=== PATIENT | male | born 1985 | race Caucasian/White ===

== ENCOUNTER 2016-11-11 08:39 | Inpatient (IN) | payer SELFPAY ==
[2016-11-11] MEDS ORDERED: Aspirin Low Dose CHEW TAB* 81 MG PO ONE (08:59)
[2016-11-11] MEDS ORDERED: NS 0.9% 1000 ML* 1,000 ML IV ONE (08:59)
[2016-11-11] MEDS ORDERED: Aspirin Low Dose CHEW TAB* 81 MG ONE (09:04)
[2016-11-11 09:08] LABS: Hematocrit 43 % (42-52); Hemoglobin 14.9 g/dl (14.0-18.0); Mean Corpuscular HGB Conc 35 g/dl (31-36); Mean Corpuscular Hemoglobin 31 pg (27-31); Mean Corpuscular Volume 89 fL (80-94); Mean Platelet Volume 8 um3 (7.4-10.4); Red Blood Count 4.83 10^6/ul (4.0-5.4); Red Cell Distribution Width 12 % (10.5-15); White Blood Count 9.7 10^3/ul (3.5-10.8)
[2016-11-11 09:41] LABS: Albumin 4.7 g/dL (3.2-5.2); BUN/Creatinine Ratio 13.2 (8-20); Calcium 9.4 mg/dL (8.6-10.3); EGFR African American 123.4 (>60); Globulin 2.7 g/dL (2-4); Potassium 3.6 mmol/L (3.5-5.0); Total Bilirubin 0.7 mg/dL (0.2-1.0); Total Protein 7.4 g/dL (6.4-8.9)
--- NOTE | 2016-11-11 09:41 | RAD ---
HISTORY: Chest pain, shortness of breath, pneumonia, CHF COMPARISONS: December 06, 2015 VIEWS: 4: Frontal dual-energy and lateral views of the chest. FINDINGS: CARDIOMEDIASTINAL SILHOUETTE: The cardiomediastinal silhouette is normal. EPIFANIO: The epifanio are normal. PLEURA: The costophrenic angles are sharp. No pleural abnormalities are noted. LUNG PARENCHYMA: The lungs are clear. ABDOMEN: The upper abdomen is clear. There is no subphrenic gas. BONES AND SOFT TISSUES: The patient is status post median sternotomy OTHER: A right-sided AICD pacemaker is noted. A prosthetic heart valve is noted. IMPRESSION: NO ACTIVE CARDIOPULMONARY DISEASE.
[2016-11-11 09:46] LABS: Troponin I 0.75 ng/mL (<0.04)
[2016-11-11] MEDS ORDERED: Heparin DRIP 25,000 UNITS(*) 25,000 UNITS/500 ML BAG IVPB SCH (10:15)
[2016-11-11] MEDS ORDERED: Heparin DRIP 25,000 UNITS(*) 25,000 UNITS/500 ML BAG ONE (10:18)
[2016-11-11] MEDS ORDERED: Heparin VIAL(*) 5000 UNITS/ML VIAL (FIVE THOUSAND) ONE (10:18)
[2016-11-11] MEDS ORDERED: Heparin VIAL(*) 5000 UNITS/ML VIAL (FIVE THOUSAND) IV SCH ×2 (11:00→12:00)
[2016-11-11] MEDS ORDERED: Nicotine GUM* 2 MG PO PRN (11:37)
[2016-11-11] MEDS ORDERED: Acetaminophen TAB* 325 MG PO PRN (11:43)
[2016-11-11] MEDS ORDERED: Ondansetron INJ* 2 MG/ML VIAL IV PRN (11:43)
[2016-11-11 11:52] LABS: Troponin I 0.77 ng/mL (<0.04)
[2016-11-11] MEDS ORDERED: Nicotine Inhaler* 10 MG AMP INH PRN (11:57)
[2016-11-11 12:33] LABS: TSH (Thyroid Stimulating Horm) 2.3 mcIU/mL (0.34-5.60)
[2016-11-11] MEDS ORDERED: Mouth Piece, Nicotine* 1 EACH CARTRIDGE INH ONE (13:00)
[2016-11-11] MEDS: Heparin DRIP 25,000 UNITS(*) 25,000 UNITS/500 ML BAG IVPB SCH (13:48)
--- NOTE | 2016-11-11 14:13 | HP ---
HISTORY AND PHYSICAL: DATE OF ADMISSION: 11/11/16 PROVIDER: Chanda Carter NP ATTENDING PHYSICIAN: Becky Curran MD * (as dictated by Chanda Carter NP). CONSULTING PHYSICIAN: Mehran Huerta MD, Cardiology. CHIEF COMPLAINT: Chest pain. HISTORY OF PRESENT ILLNESS: Mr. Padilla is a 31-year-old male patient with a history significant for obstructive hypertrophic cardiomyopathy, VSD, PDA and PFO as well as prosthetic aortic valve replacement in 2005 who presents today with concern for chest pain. Patient states that the pain started last night but really started bothering him around 6 o'clock this morning. He describes it as an intermittent sharp pain on the left side, sometimes shooting through the chest. He denies any radiation to jaw, neck, back, shoulders or arms. He denies any accompanying diaphoresis, shortness of breath. He does report feeling a little dizzy this morning. Here in the ER, he reports that the pain has resolved and denies any current dizziness. Patient was recently discharged from the cardiology practice of [facility]. Patient states that it was because he had missed an appointment. Since then, the patient has not been able to get prescription refills for his warfarin. He said that he was discharged from practice about 3 months ago and has no primary care doctor although he has been searching. He has been off of his warfarin for approximately 1 month. The patient denies any other chronic medical conditions including hypertension, hyperlipidemia, and diabetes. He denies any recent illness, fever, chills, cold or flu symptoms, changes in appetite. He denies orthopnea and reduced activity tolerance. He denies any palpitations, lower extremity edema, cough, abdominal pain, nausea, vomiting, diarrhea, dysuria. Denies any tingling or numbness. No joint pains, muscle pains or rashes. Here in the ER, the patient had an EKG. EKG showed concern for intraventricular conduction delay with T-wave inversions in leads 1 and aVL. His initial troponin was 0.75. PAST MEDICAL HISTORY: 1. Obstructive hypertrophic cardiomyopathy. 2. History of V-tach. 3. PDA. 4. PFO. 5. VSD. 6. DE in 2005. PAST SURGICAL HISTORY: Includes: 1. ICD placement. 2. Aortic valve replacement in 2005. HOME MEDICATIONS: Patient was previously on warfarin but currently denies taking any medications. ALLERGIES: No known drug allergies. FAMILY HISTORY: He reports cardiac disease in his grandmother and grandfather. SOCIAL HISTORY: The patient is a current smoker and smokes about a pack per day. He states this morning he threw out his cigarettes and is motivated to quit smoking. He reports occasional alcohol use stating that he had probably more alcohol this week than he usually has and prior to that has not had any in approximately 7 months. This week he endorses drinking a couple of beers on Monday, which was the 08 of November holiday and on the weekend. He works at the [employer]. He does not endorse any recreational drug use stating that he last used 11 years ago. Larry Lakhani is the surrogate decision maker, she can be reached at [phone]. REVIEW OF SYSTEMS: As per HPI. PHYSICAL EXAMINATION GENERAL: Mr. Padilla is a young male patient who is lying in ED stretcher, in no acute distress. VITAL SIGNS: Temperature 98.0, respiratory rate 18, blood pressure 119/70, heart rate 65, and O2 saturations is 97% on room air. HEENT: Head is atraumatic, normocephalic. Face is symmetrical. Pupils are equal, round, and reactive to light. Sclerae anicteric. Extraocular movements are intact. Oral mucosa appears moist. There is no oropharyngeal erythema or exudate. NECK: Supple. No lymphadenopathy appreciated. No carotid bruits noted. No thyromegaly noted. No JVD. CARDIAC: S1, S2. Heart sounds regular rate and rhythm. There is a systolic murmur heard best at the right sternal border, grade 2 to 3/6. Patient has no peripheral edema. Distal pulses are 2+, symmetrical and equal. RESPIRATORY: Lungs are clear to auscultation. ABDOMEN: Soft, nontender, nondistended. Bowel sounds present in all 4 quadrants. MUSCULOSKELETAL: No clubbing or cyanosis noted. Patient has full range of motion. SKIN: Appears grossly intact. NEURO: Cranial nerves II through XII are grossly intact. Patient's lower extremity: Sensation is intact to light touch to the lower extremity. PSYCH: He is alert and oriented x3. Affect is appropriate. LABORATORY DATA AND DIAGNOSTIC STUDIES: CBC: WBC 9.7, hemoglobin 14.9, hematocrit 43, platelet count 179. INR 0.96. D-dimer less than 200. CMP: Sodium 137, potassium 3.6, chloride 104, carbon dioxide 26, BUN 12, creatinine 0.91, glucose 101, lactic acid 0.7, calcium 9.4. Total bilirubin 0.7, AST 32, ALT 24, alk phos 50. Troponin 0.75, BNP 212. Albumin 4.7. EKG as per above. Chest x-ray: No active cardiopulmonary disease. Old medical records were reviewed. ASSESSMENT AND PLAN: Mr. Padilla is a 31-year-old male with a past medical history of cardiomyopathy and aortic valve replacement who has been noncompliant with his warfarin, recently manifested with chest pain. He will be admitted to the telemetry unit. 1. Chest pain. Admit to telemetry. Patient is currently n.p.o. in the event that he may need further intervention with cardiac catheterization later on today. We will obtain echocardiogram, Cardiology was consulted in the ER and will see the patient. He has been started on a heparin drip, which we will continue. Continue to monitor his troponins. Patient has also received aspirin here in the ER. Patient has an ICD, which we will interrogate. He denies any ICD firing recently. [facility] has been contacted here in the ER. Further recommendations as per Cardiology. 2. Aortic valve replacement. Patient has been off of warfarin for at least 1 month. He will need to resume this or some form of anticoagulation once cleared by Cardiology and we will stop his heparin drip. 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 3. Tobacco abuse. Patient will be ordered p.r.n. nicotine replacement. 4. FEN: The patient is currently n.p.o. 5. DVT prophylaxis: Heparin drip. 6. Code status: The patient is a full code. TIME SPENT: Time spent on this admission was approximately 60 minutes. More than half of that time was spent [id number] with the patient obtaining history and physical, performing physical examination, and reviewing plan of care. Plan of care is also reviewed with my attending, Dr. Curran, who is in agreement. CHANDA CARTER, AUTOMATIC PRESSER [id number]/[facility] #: [id number] CHARISSE
--- NOTE | 2016-11-11 15:45 | ED ---
Keira Glover Edward, scribed for Rebel Tee MD on 11/11/16 at 0908 . HPI Chest Pain - HPI Summary HPI Summary: 31 y/o male presents to ED c/o tingling, "weird" feelings in chest. Patient states he has intermittent CP characterized as stabbing, located on the left side. 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 There was SOB earlier but it has since resolved. Pain is not aggravated by breathing. Denies diaphoresis, nausea, vomiting, fever, and chills. SHx aortic valve replacement 10 years ago. PMHx PA 10 years ago. No PMHx blood clots. Smoker, EtOH use, and past drug use. - History of Current Complaint Chief Complaint: EDChestPainROMI Hx Obtained From: Patient Onset/Duration: Started Hours Ago - 06:00 thir morning Timing: Constant, Intermittent Pain Intensity: 0 Chest Pain Location: Left Lateral Character: Sharp/Stabbing Associated Signs and Symptoms: Positive: Chest Pain, Shortness of Breath - Earlier, now resolved. Negative: Diaphoresis, Nausea, Vomiting - Allergy/Home Medications Allergies/Adverse Reactions: Allergies Allergy/AdvReac Type Severity Reaction Status Date / Time No Known Allergies Allergy Verified 12/06/15 14:15 PMH/Surg Hx/FS Hx/Imm Hx Previously Healthy: No Cardiovascular History: Reports: Hx Auto Implanted Cardiovert Defib, Hx Congenital Heart Disease, Hx Pacemaker/ICD, Hx Valvular Heart Disease - mechanical heart valve Musculoskeletal History: Denies: Hx Arthritis, Hx Osteoporosis Sensory History: Denies: Hx Contacts or Glasses, Hx Hearing Aid Opthamlomology History: Denies: Hx Contacts or Glasses - Surgical History Surgery Procedure, Year, and Place: PACEMAKER, DEFIBRILLATOR, AORTIC VALVE REPLACEMENT Hx Anesthesia Reactions: No Infectious Disease History: No Infectious Disease History: Denies: Traveled Outside the [place] in Last 30 Days - Family History Known Family History: Positive: Other - Grandmother - CABG - Social History Alcohol Use: Occasionally Substance Use Type: Reports: None Substance Use Comment - Amount & Last Used: Last used this AM. Hx Tobacco Use: Yes Smoking Status (MU): Heavy Every Day Tobacco Smoker Type: Cigarettes Amount Used/How Often: 1 PPD Length of Time of Smoking/Using Tobacco: 9 years Have You Smoked in the Last Year: Yes Review of Systems Constitutional: Negative Negative: Fever, Chills, Skin Diaphoresis Eyes: Negative ENT: Negative Positive: Chest Pain Positive: Shortness Of Breath - Earlier, since resolved Gastrointestinal: Negative Negative: Vomiting, Diarrhea, Nausea Genitourinary: Negative Musculoskeletal: Negative Skin: Negative Neurological: Negative Psychological: Normal All Other Systems Reviewed And Are Negative: Yes Physical Exam - Summary Physical Exam Summary: The patient is well-nourished in no acute distress and in no acute pain. The skin is warm and dry and skin color reflects adequate perfusion. There is a little diaphoresis. HEENT: The head is normocephalic and atraumatic. The pupils are equal and reactive. The conjunctivae are clear and without drainage. Nares are patent and without drainage. Mouth reveals moist mucous membranes and the throat is without erythema and exudate. The external ears are intact. The ear canals are patent and without drainage. The tympanic membranes are intact. Neck is supple with full range of motion and non-tender. There are no carotid bruits. The thyroid is not enlarged. There is no neck vein distension. Respiratory: Chest is non-tender. Lungs are clear to auscultation and breath sounds are symmetrical and equal. Cardiovascular: Hear is regular rate and rhythm. There is a murmur best heard in the 2nd left intercostal space. There is no peripheral edema and pulses are symmetrical and equal. Abdomen: The abdomen is soft and non-tender. There are normal bowel sounds heard in all four quadrants and there is no organomegaly palpated. Musculoskeletal: There is no back pain noted. Extremities are non-tender with full range of motion. There is good capillary refill. There is no peripheral edema or calf tenderness elicited. Neurological: Patient is alert and oriented to person, place and time. The patient has symmetrical motor strength in all four extremities. Cranial nerves are grossly intact. Deep tendon reflexes are symmetrical and equal in all four extremities. Psychiatric: The patient has an appropriate affect and does not exhibit any anxiety. The patient is a little depressed. Triage Information Reviewed: Yes Vital Signs On Initial Exam: Initial Vitals Temp Pulse Resp BP Pulse Ox 97.7 F 92 20 134/73 99 11/11/16 08:40 11/11/16 08:40 11/11/16 08:40 11/11/16 08:40 11/11/16 08:40 Vital Signs Reviewed: Yes Diagnostics - Vital Signs Vital Signs Temp Pulse Resp BP Pulse Ox 11/11/16 09:00 76 17 97 11/11/16 08:51 81 18 97 11/11/16 08:49 129/78 11/11/16 08:43 98.0 F 88 20 134/73 99 11/11/16 08:40 97.7 F 92 20 134/73 99 - Laboratory Lab Results: Lab Results 11/11/16 11/11/16 11/11/16 Range/Units 09:00 09:00 09:00 WBC 9.7 (3.5-10.8) 10^3/ul RBC 4.83 (4.0-5.4) 10^6/ul Hgb 14.9 (14.0-18.0) g/dl Hct 43 (42-52) % MCV 89 (80-94) fL MCH 31 (27-31) pg MCHC 35 (31-36) g/dl RDW 12 (10.5-15) % Plt Count 179 (150-450) 10^3/ul MPV 8 (7.4-10.4) um3 Neut % (Auto) 44.9 (38-83) % Lymph % (Auto) 42.3 (25-47) % [place] % (Auto) 10.3 H (1-9) % Eos % (Auto) 1.4 (0-6) % Baso % (Auto) 1.1 (0-2) % Absolute Neuts (auto) 4.3 (1.5-7.7) 10^3/ul Absolute Lymphs (auto) 4.1 (1.0-4.8) 10^3/ul Absolute Monos (auto) 1.0 H (0-0.8) 10^3/ul Absolute Eos (auto) 0.1 (0-0.6) 10^3/ul Absolute Basos (auto) 0.1 (0-0.2) 10^3/ul Absolute Nucleated RBC 0.01 10^3/ul Nucleated RBC % 0.1 INR (Anticoag Therapy) (0.89-1.11) APTT (26.0-36.3) seconds D-Dimer, Quantitative (Less Than 230) ng/mL Sodium 137 (133-145) mmol/L Potassium 3.6 (3.5-5.0) mmol/L Chloride 104 (101-111) mmol/L Carbon Dioxide 26 (22-32) mmol/L Anion Gap 7 (2-11) mmol/L BUN 12 (6-24) mg/dL Creatinine 0.91 (0.67-1.17) mg/dL Est GFR ( Amer) 123.4 (>60) Est GFR (Non-Af Amer) 96.0 (>60) BUN/Creatinine Ratio 13.2 (8-20) Glucose 101 H (70-100) mg/dL Hemoglobin A1c (Less than 6.0) % Lactic Acid 0.7 (0.5-2.0) mmol/L Calcium 9.4 (8.6-10.3) mg/dL Magnesium 2.0 (1.9-2.7) mg/dL Total Bilirubin 0.70 (0.2-1.0) mg/dL AST 32 (13-39) U/L ALT 24 (7-52) U/L Alkaline Phosphatase 50 (34-104) U/L Troponin I 0.75 H* (<0.04) ng/mL B-Natriuretic Peptide ( - 100) pg/mL Total Protein 7.4 (6.4-8.9) g/dL Albumin 4.7 (3.2-5.2) g/dL Globulin 2.7 (2-4) g/dL Albumin/Globulin Ratio 1.7 (1-3) TSH 2.30 (0.34-5.60) mcIU/mL 11/11/16 11/11/16 11/11/16 Range/Units 09:00 09:00 09:00 WBC (3.5-10.8) 10^3/ul RBC (4.0-5.4) 10^6/ul Hgb (14.0-18.0) g/dl Hct (42-52) % MCV (80-94) fL MCH (27-31) pg MCHC (31-36) g/dl RDW (10.5-15) % Plt Count (150-450) 10^3/ul MPV (7.4-10.4) um3 Neut % (Auto) (38-83) % Lymph % (Auto) (25-47) % [place] % (Auto) (1-9) % Eos % (Auto) (0-6) % Baso % (Auto) (0-2) % Absolute Neuts (auto) (1.5-7.7) 10^3/ul Absolute Lymphs (auto) (1.0-4.8) 10^3/ul Absolute Monos (auto) (0-0.8) 10^3/ul Absolute Eos (auto) (0-0.6) 10^3/ul Absolute Basos (auto) (0-0.2) 10^3/ul Absolute Nucleated RBC 10^3/ul Nucleated RBC % INR (Anticoag Therapy) 0.96 (0.89-1.11) APTT 28.2 (26.0-36.3) seconds D-Dimer, Quantitative < 200 (Less Than 230) ng/mL Sodium (133-145) mmol/L Potassium (3.5-5.0) mmol/L Chloride (101-111) mmol/L Carbon Dioxide (22-32) mmol/L Anion Gap (2-11) mmol/L BUN (6-24) mg/dL Creatinine (0.67-1.17) mg/dL Est GFR ( Amer) (>60) Est GFR (Non-Af Amer) (>60) BUN/Creatinine Ratio (8-20) Glucose (70-100) mg/dL Hemoglobin A1c 5.2 (Less than 6.0) % Lactic Acid (0.5-2.0) mmol/L Calcium (8.6-10.3) mg/dL Magnesium (1.9-2.7) mg/dL Total Bilirubin (0.2-1.0) mg/dL AST (13-39) U/L ALT (7-52) U/L Alkaline Phosphatase (34-104) U/L Troponin I (<0.04) ng/mL B-Natriuretic Peptide 212 H ( - 100) pg/mL Total Protein (6.4-8.9) g/dL Albumin (3.2-5.2) g/dL Globulin (2-4) g/dL Albumin/Globulin Ratio (1-3) TSH (0.34-5.60) mcIU/mL Result Diagrams: 11/11/16 09:00 11/11/16 11:05 Lab Statement: Any lab studies that have been ordered have been reviewed, and results considered in the medical decision making process. - Radiology CXR Xray Interpretation: No Acute Changes - No active cardiopulmonary disease. Radiology Interpretation Completed By: Radiologist - EKG 1 EKG Rhythm: Sinus Rhythm EKG Interpretation: 08:47 - Intraventricular conduction delay. T-wave inversion in 1, avL. EKG Comparison: Other - Poor R wave progression. No STEMI. 2 EKG Interpretation: 10:31 - Inverted T waves in 1 and aVL. Poor R wave progression. No STEMI EKG Comparison: Other - No pacer spikes noted. Chest Pain Course/Dx - Course Assessment/Plan: Spoke with Dr. Becky He (Hospitalist) @ 10:08 who agreed to admit patient. Spoke with Dr. Mehran Huerta ([facility]), who will assess the patient's mechacnical valve replacement. Patient was dismissed from Dr. Meng Henderson's (Cardiology) office recently. Spoke with a representer from [facility], who stated the patient had 2 rounds of SVT overnight ( no VT). - Chest Pain Differential Diagnosis/HQI/PQRI: Acute PA, Pulmonary Embolism - Diagnoses Provider Diagnoses: Chest pain, Elevated troponin, Hx of mechanical aortic valve replacement - Critical Care Time Critical Care Time: 30-74 min - 30 minutes Discharge - Discharge Plan Condition: Stable Disposition: ADMITTED TO [facility] documentation as recorded by the Keira stephenson Edward accurately reflects the service I personally performed and the decisions made by , Rebel Tee MD.
--- NOTE | 2016-11-11 17:18 | ECHO ---
Patient: FRANC ALEGRIA [facility] Rec#: [id number] : 1985 Date: 11/11/2016 Age: 31y Height: 162.56 cm / 64.0 in Weight: 62.6 kg / 138.0 lbs Sex: M BSA: 1.67 Room#: 453 Admit Date#: 11/11/2016 Type: Inpatient Referring: Brenna Mccormick Reading: Mehran Huerat MD Catalog Librarian: Margaret [facility]olaALBUQU[facility] Tr[facility] Indication: Chest pain BP: 124/72 HR: 57 Rhythm: Paced Indications Chest Pain Findings History: AVR #23 carbomedics mechanical valve, PDA with repair, VSD, WI, HOCM, HTN, pacer/AICD. Technical Comments: The study quality is fair. The study is technically limited due to poor parasternal windows. Completed at 1625. Left Ventricle: The left ventricular chamber size is normal. Severe concentric left ventricular hypertrophy is observed. There is evidence of a hypertrophic cardiomyopathy. Global left ventricular wall motion and contractility are within normal limits. The left ventricle appears hyperdynamic. The estimated ejection fraction is greater than 65%. The assessment of diastolic function is non-diagnostic. Left Atrium: The left atrial chamber size is normal. Right Ventricle: The right ventricular cavity size is normal.Right ventricular wall thickness is increased. The right ventricular global systolic function is normal. A pacemaker wire is visualized in the right ventricle. Right Atrium: The right atrium is mildly dilated. A pacemaker wire is visualized in the right atrium. Aortic Valve: There is trace to mild aortic regurgitation. There is mild to moderate aortic stenosis. A mechanical prosthetic aortic valve is present. and seems overall to be adequately functioning. Elevated velocity and gradients noted across the aortic valve replacement which may reflect mild to moderate stenosis vs hyperdynamic left ventricular function. Mitral Valve: The mitral valve leaflets are mildly thickened. There is mild mitral regurgitation. Tricuspid Valve: The tricuspid valve leaflets are normal. There is trace to mild tricuspid regurgitation. The right ventricular systolic pressure is estimated at 28 mmHg. No pulmonary hypertension is noted. Pulmonic Valve: The pulmonic valve appears thickened with good excursion. There is trace to mild pulmonic regurgitation. There is no pulmonic stenosis. Pericardium: There is no significant pericardial effusion. Aorta: There is no dilatation of the ascending aorta. There is no dilatation of the aortic arch. There is no dilation of the aortic root. Pulmonary Artery: The main pulmonary artery is not well visualized. Venous: The inferior vena cava appears normal in size. There is a greater than 50% respiratory change in the inferior vena cava dimension. Conclusions The left ventricle appears hyperdynamic. The estimated ejection fraction is greater than 65%. Global left ventricular wall motion and contractility are within normal limits. There is evidence of a hypertrophic cardiomyopathy. The left ventricular chamber size is normal. The right atrium is mildly dilated. A mechanical prosthetic aortic valve replacement is present and seems overall to be adequately functioning. Elevated velocity and gradients noted across the aortic valve replacement (AVR) which may reflect mild to moderate AVR stenosis vs hyperdynamic left ventricular function. There is trace to mild aortic insufficiency. There is mild mitral regurgitation. Since the prior echocardiogram completed 06/12/14, there appears to be little change including in AVR function. Measurements Name Value Normal Range RVIDd (AP) 2D 2.7 cm (0.9 - 2.6) RVDdMajor (2D) 4.3 cm (2.2 - 4.4) RAd ISD 4CH 5.1 cm (3.4 - 4.9) RA (A4C)W 3.1 cm (2.9 - 4.6) IVSd (2D) 1.9 cm (0.6 - 1) LVPWd (2D) 1.8 cm (0.6 - 1) LVIDd (2D) 4.4 cm (3.6 - 5.4) LVIDs (2D) 2.7 cm - LV FS (2D) 40 % (25 - 45) Aortic Annulus 1.8 cm (1.4 - 2.6) Ao root diameter (2D) 3.1 cm (2.1 - 3.5) Ascending Ao 3.1 cm (2.1 - 3.4) Aortic arch 1.8 cm (1.8 - 3.4) LA dimension (AP) 2D 4 cm (2.3 - 3.8) LAd ISD 4CH 4.9 cm (2.9 - 5.3) LA ISD 4CH W 3.8 cm (2.5 - 4.5) Name Value Normal Range LA ESV SP 4CH (A/L) 36 ml - LA ESV SP 2CH (A/L) 79 ml - LA ESV BP (A/L) 60 ml - LA ESV BP (A/L) index 35.85 ml/m2 - LA ESV SP 4CH (MOD) 35 ml - LA ESV SP 2CH (MOD) 73 ml - Name Value Normal Range MV E-wave Vmax 1 m/sec - MV deceleration time 227 msec - MV A-wave Vmax 0.6 m/sec - MV E:A ratio 1.8 ratio - LV septal e' Vmax 0.03 m/sec - LV lateral e' Vmax 0.05 m/sec - LV E:e' septal ratio 33.33 ratio - LV E:e' lateral ratio 20 ratio - Name Value Normal Range AV Vmax 2.8 m/sec - AV VTI 59.4 cm - AV peak gradient 31.41 mmHg - AV mean gradient 23.34 mmHg - LVOT diameter 2 cm - LVOT Vmax 1.35 m/sec - LVOT VTI 29.22 cm - LVOT peak gradient 7.39 mmHg - LVOT mean gradient 3.74 mmHg - DOI (VTI) 0.49 ratio - CRISTIANE (continuity Vmax) 1.51 cm2 - CRISTIANE (continuity VTI) 1.54 cm2 - EVELIA Vmax 1.12 m/sec - Name Value Normal Range MR Vmax 4.1 m/sec - MR VTI 109.1 cm - Name Value Normal Range TR Vmax 2.5 m/sec - TR peak gradient 25 mmHg - RAP 3 mmHg - RVSP 28 mmHg - IVC diameter 1.5 cm - Name Value Normal Range PV Vmax 1 m/sec - PV peak gradient 4.12 mmHg -
[2016-11-11] MEDS ORDERED: Warfarin TAB(*) 5 MG PO ONE (19:30)
[2016-11-11] MEDS: Metoprolol Succinate XL TAB* 50 MG PO SCH (22:39)
--- NOTE | 2016-11-12 01:30 | CONS ---
CC: Dr. Meng Henderson CARDIOLOGY CONSULTATION AND ICD INTERROGATION REPORT: DATE OF CONSULTATION: 11/11/16 REFERRAL PHYSICIANS: 1. Brenna Mccormick, HANNAH 2. Rebel Tee DO REASON FOR CARDIOLOGY CONSULTATION: chest pain and elevated troponin. HISTORY OF PRESENT ILLNESS: I was kindly asked by Dr. Tee and Ms. 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 Mr. Padilla is accompanied by his female partner, Ms. Demetra Lakhani, with his verbal consent. The patient states that last night at approximately 11 p.m., he began noticing chest pain for 45 minutes. It was not significant and so he went to bed. This morning when he woke up at 6 a.m. to work at the [employer], he was noticing the chest pain waxing and waning without radiation, but he did also feel a little shortness of breath. He presented to the emergency room where he was found to have elevated troponin of 0.75. He was admitted earlier today to the hospital on a continuous heparin infusion. At this time, the patient has no further chest pain and he estimates that today his waxing and waning symptoms of chest pain lasted approximately 6 hours. The patient has a history of palpitations for 10 years, which he does not find troublesome and he denies fainting. The patient has a [employer] ICD dual chamber device, which we have interrogated with Maurice and which I have discussed the results with the [employer] motor vehicle field representative. The ICD pacemaker is set at an DDD mode, base rate of 50, max tracking rate of 120 beats per minute, VT1 zone is set and monitored at 150 beats, VT2 zone is set at 200 beats per minute with ATP x4 followed by 36 joules , followed by 40 joules x3, and VF detection set at 240 beats per minute with ATP x1 followed by 36 joules, followed by 40 joules x5. The atrial lead is 2.0 volts at 0.4 milliseconds, ventricular lead 2 volts at 0.4 milliseconds. The patient is A paced 15% of the time since May 2016 when last interrogated and V paced less than 1% of the time. AMS episodes of 0. VT episodes of 0. The patient has had 60 SVT episodes. While I do not have on the Maurice, interrogation access to the EGM, they have been reviewed by the [employer] rep, who feels that they are narrow complex with clear AV conduction and he will be faxing those EGMs to us.No evidence of battery depletion. This is felt to be a normally functioning dual chamber [employer] pacer ICD device demonstrating multiple runs of SVT but no therapy. The patient has previously been followed by my partners, Dr. Chiquita Ray and Dr. Meng Henderson, but was discharged from our practice due to noncompliance. He does have a history of a VSD repair with a mechanical aortic valve replacement in 2001 at [facility]. He did not have coronary artery bypass surgery at that time. He subsequently had an ICD placed, and by his description , he had inappropriate ICD discharges requiring reprogramming. PAST MEDICAL HISTORY: Includes noncompliance and obstructive hypertrophic cardiomyopathy. OUTPATIENT MEDICATIONS: None. He has previously been prescribed Coumadin for his mechanical aortic valve replacement, but was noncompliant with followup of that medication for at least 5 to 6 months. ALLERGIES TO MEDICATIONS: None. He denies shrimp, seafood, or dye allergy. FAMILY HISTORY: His maternal grandmother had a history of "heart problems." His maternal grandfather of an PR in his 40s. There is no family history of diabetes, stroke, or cancer. SOCIAL HISTORY: He smokes cigarettes, one pack of cigarettes per day for 12 years. He does not use any illicit drugs after having used illicit drugs 11 years ago. He rarely drinks alcohol, but interestingly enough, drank 3 to 6 beers last night. He denies heartburn symptoms. He drinks 6 to 8 cups of coffee per day. He has never been and is single and lives alone. His lady friend lives in [place] and is expecting his third child. He has 2 other children, who are an 11-year-old son and a 4 year old son with a different female partner. 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 He does a lot of walking from his house to the [place] where he works, which includes a hill. REVIEW OF SYSTEMS: He denies personal history of stroke, cancer, vomiting up blood, coughing up blood, bright red blood per rectum, bleeding stomach ulcers, renal calculi, cholelithiasis, asthma, emphysema, pneumonia, tuberculosis, sleep apnea, home oxygen use, diabetes, hypertension. He does state he has a history of prior PR, but it is unclear if he has had obstructive coronary artery disease and he has not had coronary revascularization by his description. He has palpitations every other day 2 times per day for 2 minutes. He denies psychiatric illnesses. He denies lupus, psoriasis, seizures , Parkinson's disease, myasthenia gravis, thyroid disorders, liver disorders, kidney disorders, claudication symptoms, pulmonary emboli, deep venous thrombosis, peripheral arterial disease, peripheral edema, GERD symptoms. All of the review of systems are negative except as described above. PHYSICAL EXAMINATION: Height 5 feet 4 inches, weight 138 pounds, blood pressure 124/72, O2 saturation 98%. On general exam, he is a pleasant, young petite man, in no acute distress. HEENT: Shows the cranium is normocephalic and atraumatic (it appears he has shaved his head) and he has moist mucosal membranes. Neck veins are not distended. There are no carotid bruits visible. Skin: Warm and perfused. Affect appropriate. He appears oriented. No significant kyphoscoliosis on back exam. Lungs are clear to auscultation. No wheezes, no rales. Cardiac Exam: S1 and S2. Regular rate. Soft systolic ejection murmur heard without radiation. There is no rub or gallop. PMI is nondisplaced. Abdomen: Soft, nondistended, appears benign. Extremities without significant edema. Pulses appear intact. DIAGNOSTIC STUDIES/LABORATORY DATA: The patient had a transthoracic echocardiogram completed earlier today (I would direct the reader to that report as well), which showed hyperdynamic left ventricular ejection fraction greater than 65% with hypertrophic cardiomyopathy, mild right atrial dilatation , mechanical prosthetic aortic valve replacement present, which appears overall adequately functioning, and while there are elevated velocity and gradients noted across the aortic valve replacement that may reflect [id number] aortic valve replacement stenosis versus the hyperdynamic left ventricular function with mild mitral regurgitation. When compared to prior echocardiogram completed on 06/12/14, there appears to be a little change including stable AVR function (so there does not appear to be aortic valve replacement thrombosis as the patient has been noncompliant with his Coumadin, I believe, for at least 5 months and by review, his last INR prior to this admission was 1.97 on at least in the [facility] system). A 12-lead EKG completed on 11/11/16 at 10:31 shows sinus rhythm with left atrial enlargement, LVH by multiple criteria and significant T-wave changes laterally. This may reflect the patient's hypertrophic cardiomyopathy. This appears similar to prior EKG ablation completed 12/06/15 including regarding the T-wave changes. White blood cell count 11.7, hematocrit 43, platelet count 179. INR 0.96 on admission. D-dimer less than 200 ng/mL. Sodium 137, potassium 3.6, chloride 104, bicarbonate 26, BUN 12, creatinine 0.91, magnesium 2.0, troponin 0.75, followed by 0.77, followed by 0.71. TSH 2.30. IMPRESSION: Mr. Padilla is a 31-year-old gentleman with a history of unicuspid aortic valve status post mechanical aortic valve replacement as well as VSD repair in 2001 at the [facility] with known hypertrophic cardiomyopathy and significant noncompliance including with noncompliance with use of Coumadin. He was admitted with somewhat atypical chest pain symptoms and stable EKG, but his troponin is elevated. We also see on his normally functioning dual-chamber pacemaker ICD 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 After discussion with the patient, I am making the following recommendations at this time with which he is in agreement. RECOMMENDATIONS: 1. While the patient has had a longstanding history of noncompliance, he states he is now willing to take medications (he states "benji, doc, I have a third kid on the way."). Given his apparent change of heart, we would recommend beginning the patient on Toprol-XL 50 mg once a day including for suppression of prior SVT and Coumadin with goal INR of 2.5 to 3.5 given his mechanical aortic valve replacement. While his troponin has peaked, I think it is reasonable to continue his heparin infusion until his INR is 2.5 while he is hospitalized and that would be beneficial for at least 24 to 48 hours additionally for his elevated troponin, which may be demand mediated. 2. We will risk stratify the patient with cardiac chemical nuclear stress test on Monday. 3. Would recommend the patient discontinue caffeine ingestion and cigarette smoking which the patient seems motivated for. 4. Reasonable to begin the patient on aspirin 81 mg for now until stress test is complete. 5. Await EGMs from the [facility] so we may confirm the report of narrow complex and AV conduction on SVT electrograms as that is not currently available to me by [facility] remote interrogation. 6. Other management as per the hospitalist medicine service and I have discussed the case with Ms. Brenna Mccormick. I have discussed the case in detail with the patient as well as with his verbal consent with his female partner, Ms. Demetra Lakhani, and they appear to be in agreement with these recommendations. Many thanks for this kind cardiac consultation opportunity. Please do not hesitate to contact me if you have any questions or concerns regarding the patient's cardiovascular consultative care. [id number]/CPS #: [id number] MTDD
[2016-11-12 02:53] LABS: Hematocrit 42 % (42-52); Hemoglobin 14.4 g/dl (14.0-18.0); Mean Corpuscular HGB Conc 34 g/dl (31-36); Mean Corpuscular Hemoglobin 31 pg (27-31); Mean Corpuscular Volume 91 fL (80-94); Mean Platelet Volume 8 um3 (7.4-10.4); Red Blood Count 4.67 10^6/ul (4.0-5.4); Red Cell Distribution Width 12 % (10.5-15)
[2016-11-12 03:08] LABS: BUN/Creatinine Ratio 21.3 (8-20); Calcium 9.2 mg/dL (8.6-10.3); EGFR African American 143.2 (>60); EGFR Non-African American 111.3 (>60); HDL Cholesterol 36.9 mg/dL; Potassium 3.9 mmol/L (3.5-5.0)
[2016-11-12] MEDS: Aspirin Low Dose CHEW TAB* 81 MG PO SCH (08:46)
[2016-11-12] MEDS: Metoprolol Succinate XL TAB* 50 MG PO SCH (09:37)
[2016-11-12 12:21] LABS: Troponin I 0.56 ng/mL (<0.04)
--- NOTE | 2016-11-12 15:53 | PN ---
Subjective Date of Service: 11/12/16 Interval History: Chest pain has resolved No cough, nausea, SOB, palps tele reviewed, benign Objective Active Medications: Acetaminophen (Tylenol Tab*) 650 mg PO Q4H PRN PRN Reason: FEVER/PAIN Aspirin (Aspirin Low Dose Tab*) 81 mg PO DAILY [facility] Last Admin: 11/12/16 08:46 Dose: 81 mg Heparin Sodium (Porcine) (Heparin Vial(*)) 0 units IV .PER PROTOCOL [facility] PRN Reason: Protocol Heparin Sodium/Dextrose (Heparin Drip 25,000 Units(*)) 25,000 units in 500 mls @ 0 mls/hr IVPB .PER RATE [facility]; Per Protocol PRN Reason: Protocol Last Admin: 11/11/16 13:48 Dose: 16 mls/hr Metoprolol Succinate (Toprol Xl Tab*) 50 mg PO DAILY [facility] Last Admin: 11/12/16 09:37 Dose: Not Given Nicotine (Nicotine Inhaler*) 10 mg INH Q2H PRN PRN Reason: CRAVING Nicotine Polacrilex (Nicotine Gum*) 2 mg PO Q2H PRN PRN Reason: CRAVING Ondansetron HCl (Zofran Inj*) 4 mg IV Q4H PRN PRN Reason: NAUSEA/VOMITING Pharmacy Profile Note (Coumadin Per Pharmacy*) 1 note FOLLOW UP .PER PHARMACY PROTOC [facility] PRN Reason: Protocol Warfarin Sodium (Coumadin Tab(*)) 5 mg PO ONCE ONE Stop: 11/12/16 17:01 Oxygen Devices in Use Now: None Appearance: NAD Eyes: No Scleral Icterus, PERRLA Ears/Nose/Mouth/Throat: NL Teeth, Lips, Gums, Clear Oropharnyx Neck: NL Appearance and Movements; NL JVP, Trachea Midline Respiratory: Symmetrical Chest Expansion and Respiratory Effort, Clear to Auscultation Cardiovascular: RRR, - - loud s2, 3/6 DANELLE Abdominal: NL Sounds; No Tenderness; No Distention, No Hepatosplenomegaly Lymphatic: No Cervical Adenopathy Extremities: No Edema Skin: No Rash or Ulcers Neurological: Alert and Oriented x 3 Result Diagrams: 11/12/16 02:46 11/12/16 02:46 Additional Lab and Data: Lab Results 11/11/16 11/11/16 11/11/16 Range/Units 09:00 09:00 09:00 WBC 9.7 (3.5-10.8) 10^3/ul RBC 4.83 (4.0-5.4) 10^6/ul Hgb 14.9 (14.0-18.0) g/dl Hct 43 (42-52) % MCV 89 (80-94) fL MCH 31 (27-31) pg MCHC 35 (31-36) g/dl RDW 12 (10.5-15) % Plt Count 179 (150-450) 10^3/ul MPV 8 (7.4-10.4) um3 Neut % (Auto) 44.9 (38-83) % Lymph % (Auto) 42.3 (25-47) % [place] % (Auto) 10.3 H (1-9) % Eos % (Auto) 1.4 (0-6) % Baso % (Auto) 1.1 (0-2) % Absolute Neuts (auto) 4.3 (1.5-7.7) 10^3/ul Absolute Lymphs (auto) 4.1 (1.0-4.8) 10^3/ul Absolute Monos (auto) 1.0 H (0-0.8) 10^3/ul Absolute Eos (auto) 0.1 (0-0.6) 10^3/ul Absolute Basos (auto) 0.1 (0-0.2) 10^3/ul Absolute Nucleated RBC 0.01 10^3/ul Nucleated RBC % 0.1 INR (Anticoag Therapy) (0.89-1.11) APTT (26.0-36.3) seconds D-Dimer, Quantitative (Less Than 230) ng/mL Sodium 137 (133-145) mmol/L Potassium 3.6 (3.5-5.0) mmol/L Chloride 104 (101-111) mmol/L Carbon Dioxide 26 (22-32) mmol/L Anion Gap 7 (2-11) mmol/L BUN 12 (6-24) mg/dL Creatinine 0.91 (0.67-1.17) mg/dL Est GFR ( Amer) 123.4 (>60) Est GFR (Non-Af Amer) 96.0 (>60) BUN/Creatinine Ratio 13.2 (8-20) Glucose 101 H (70-100) mg/dL Hemoglobin A1c (Less than 6.0) % Lactic Acid 0.7 (0.5-2.0) mmol/L Calcium 9.4 (8.6-10.3) mg/dL Magnesium 2.0 (1.9-2.7) mg/dL Total Bilirubin 0.70 (0.2-1.0) mg/dL AST 32 (13-39) U/L ALT 24 (7-52) U/L Alkaline Phosphatase 50 (34-104) U/L Troponin I 0.75 H* (<0.04) ng/mL B-Natriuretic Peptide ( - 100) pg/mL Total Protein 7.4 (6.4-8.9) g/dL Albumin 4.7 (3.2-5.2) g/dL Globulin 2.7 (2-4) g/dL Albumin/Globulin Ratio 1.7 (1-3) TSH 2.30 (0.34-5.60) mcIU/mL 11/11/16 11/11/16 11/11/16 Range/Units 09:00 09:00 09:00 WBC (3.5-10.8) 10^3/ul RBC (4.0-5.4) 10^6/ul Hgb (14.0-18.0) g/dl Hct (42-52) % MCV (80-94) fL MCH (27-31) pg MCHC (31-36) g/dl RDW (10.5-15) % Plt Count (150-450) 10^3/ul MPV (7.4-10.4) um3 Neut % (Auto) (38-83) % Lymph % (Auto) (25-47) % [place] % (Auto) (1-9) % Eos % (Auto) (0-6) % Baso % (Auto) (0-2) % Absolute Neuts (auto) (1.5-7.7) 10^3/ul Absolute Lymphs (auto) (1.0-4.8) 10^3/ul Absolute Monos (auto) (0-0.8) 10^3/ul Absolute Eos (auto) (0-0.6) 10^3/ul Absolute Basos (auto) (0-0.2) 10^3/ul Absolute Nucleated RBC 10^3/ul Nucleated RBC % INR (Anticoag Therapy) 0.96 (0.89-1.11) APTT 28.2 (26.0-36.3) seconds D-Dimer, Quantitative < 200 (Less Than 230) ng/mL Sodium (133-145) mmol/L Potassium (3.5-5.0) mmol/L Chloride (101-111) mmol/L Carbon Dioxide (22-32) mmol/L Anion Gap (2-11) mmol/L BUN (6-24) mg/dL Creatinine (0.67-1.17) mg/dL Est GFR ( Amer) (>60) Est GFR (Non-Af Amer) (>60) BUN/Creatinine Ratio (8-20) Glucose (70-100) mg/dL Hemoglobin A1c 5.2 (Less than 6.0) % Lactic Acid (0.5-2.0) mmol/L Calcium (8.6-10.3) mg/dL Magnesium (1.9-2.7) mg/dL Total Bilirubin (0.2-1.0) mg/dL AST (13-39) U/L ALT (7-52) U/L Alkaline Phosphatase (34-104) U/L Troponin I (<0.04) ng/mL B-Natriuretic Peptide 212 H ( - 100) pg/mL Total Protein (6.4-8.9) g/dL Albumin (3.2-5.2) g/dL Globulin (2-4) g/dL Albumin/Globulin Ratio (1-3) TSH (0.34-5.60) mcIU/mL Assess/Plan/Problems-Billing Assessment: 31 yo M h/o VSD s/p repair, HOCM, ICD, mechanical AVR off coumadin p/w chest pain - Patient Problems (1) S/P AVR Comment: heparin to coumadin goal inr 2.5-3.5 (2) Chest pain Comment: plan for stress Monday (3) Tobacco abuse Comment: willing to try chantix start 0.5 mg day 1-3 inpatient (4) DVT prophylaxis Comment: heparin to coumadin
[2016-11-12] MEDS ORDERED: Warfarin TAB(*) 5 MG PO ONE (17:00)
[2016-11-12] MEDS: VARENICLINE 1 MG PO SCH (17:03)
[2016-11-12] MEDS: Heparin DRIP 25,000 UNITS(*) 25,000 UNITS/500 ML BAG IVPB SCH (18:54)
[2016-11-13] MEDS: VARENICLINE 1 MG PO SCH (08:24)
[2016-11-13] MEDS: Aspirin Low Dose CHEW TAB* 81 MG PO SCH (08:24)
[2016-11-13] MEDS: Metoprolol Succinate XL TAB* 50 MG PO SCH (09:55)
[2016-11-13] MEDS ORDERED: Warfarin TAB(*) 7.5 MG PO ONE (17:00)
--- NOTE | 2016-11-13 18:43 | PN ---
Subjective Date of Service: 11/13/16 Interval History: No chest pain upset that he did not get vivid dreams with chantix Objective Active Medications: Acetaminophen (Tylenol Tab*) 650 mg PO Q4H PRN PRN Reason: FEVER/PAIN Aspirin (Aspirin Low Dose Tab*) 81 mg PO DAILY [facility] Last Admin: 11/13/16 08:24 Dose: 81 mg Heparin Sodium (Porcine) (Heparin Vial(*)) 0 units IV .PER PROTOCOL [facility] PRN Reason: Protocol Heparin Sodium/Dextrose (Heparin Drip 25,000 Units(*)) 25,000 units in 500 mls @ 0 mls/hr IVPB .PER RATE [facility]; Per Protocol PRN Reason: Protocol Last Admin: 11/12/16 18:54 Dose: 16 mls/hr Metoprolol Succinate (Toprol Xl Tab*) 50 mg PO DAILY [facility] Last Admin: 11/13/16 09:55 Dose: Not Given Nicotine (Nicotine Inhaler*) 10 mg INH Q2H PRN PRN Reason: CRAVING Nicotine Polacrilex (Nicotine Gum*) 2 mg PO Q2H PRN PRN Reason: CRAVING Ondansetron HCl (Zofran Inj*) 4 mg IV Q4H PRN PRN Reason: NAUSEA/VOMITING Pharmacy Profile Note (Coumadin Per Pharmacy*) 1 note FOLLOW UP .PER PHARMACY PROTOC [facility] PRN Reason: Protocol Varenicline (Chantix (Nf)) 0.5 mg PO DAILY [facility] Stop: 11/14/16 09:01 Last Admin: 11/13/16 08:24 Dose: 0.5 mg Vital Signs 11/12/16 11/12/16 11/13/16 19:09 20:00 00:31 Temperature 98.3 F 98.0 F Pulse Rate 63 58 Respiratory 16 16 16 Rate Blood Pressure 91/61 96/62 (mmHg) O2 Sat by Pulse 100 97 Oximetry 11/13/16 11/13/16 11/13/16 04:18 07:37 07:41 Temperature 97.8 F 98.1 F Pulse Rate 56 61 Respiratory 16 16 16 Rate Blood Pressure 87/57 96/62 (mmHg) O2 Sat by Pulse 96 98 Oximetry 11/13/16 11/13/16 11:30 15:45 Temperature 98.4 F 98.4 F Pulse Rate 71 57 Respiratory 16 20 Rate Blood Pressure 93/60 121/68 (mmHg) O2 Sat by Pulse 99 100 Oximetry Oxygen Devices in Use Now: None Appearance: NAD, eating breakfast Eyes: No Scleral Icterus, PERRLA Ears/Nose/Mouth/Throat: NL Teeth, Lips, Gums, Clear Oropharnyx Neck: NL Appearance and Movements; NL JVP, Trachea Midline Respiratory: Symmetrical Chest Expansion and Respiratory Effort, Clear to Auscultation Cardiovascular: RRR, - - 3/6 DANELLE, mechanical HS Abdominal: NL Sounds; No Tenderness; No Distention, No Hepatosplenomegaly Extremities: No Edema Skin: No Rash or Ulcers Neurological: Alert and Oriented x 3 Result Diagrams: 11/12/16 02:46 11/12/16 02:46 Additional Lab and Data: Lab Results 11/11/16 11/11/16 11/11/16 Range/Units 09:00 09:00 09:00 WBC 9.7 (3.5-10.8) 10^3/ul RBC 4.83 (4.0-5.4) 10^6/ul Hgb 14.9 (14.0-18.0) g/dl Hct 43 (42-52) % MCV 89 (80-94) fL MCH 31 (27-31) pg MCHC 35 (31-36) g/dl RDW 12 (10.5-15) % Plt Count 179 (150-450) 10^3/ul MPV 8 (7.4-10.4) um3 Neut % (Auto) 44.9 (38-83) % Lymph % (Auto) 42.3 (25-47) % [place] % (Auto) 10.3 H (1-9) % Eos % (Auto) 1.4 (0-6) % Baso % (Auto) 1.1 (0-2) % Absolute Neuts (auto) 4.3 (1.5-7.7) 10^3/ul Absolute Lymphs (auto) 4.1 (1.0-4.8) 10^3/ul Absolute Monos (auto) 1.0 H (0-0.8) 10^3/ul Absolute Eos (auto) 0.1 (0-0.6) 10^3/ul Absolute Basos (auto) 0.1 (0-0.2) 10^3/ul Absolute Nucleated RBC 0.01 10^3/ul Nucleated RBC % 0.1 INR (Anticoag Therapy) (0.89-1.11) APTT (26.0-36.3) seconds D-Dimer, Quantitative (Less Than 230) ng/mL Sodium 137 (133-145) mmol/L Potassium 3.6 (3.5-5.0) mmol/L Chloride 104 (101-111) mmol/L Carbon Dioxide 26 (22-32) mmol/L Anion Gap 7 (2-11) mmol/L BUN 12 (6-24) mg/dL Creatinine 0.91 (0.67-1.17) mg/dL Est GFR ( Amer) 123.4 (>60) Est GFR (Non-Af Amer) 96.0 (>60) BUN/Creatinine Ratio 13.2 (8-20) Glucose 101 H (70-100) mg/dL Hemoglobin A1c (Less than 6.0) % Lactic Acid 0.7 (0.5-2.0) mmol/L Calcium 9.4 (8.6-10.3) mg/dL Magnesium 2.0 (1.9-2.7) mg/dL Total Bilirubin 0.70 (0.2-1.0) mg/dL AST 32 (13-39) U/L ALT 24 (7-52) U/L Alkaline Phosphatase 50 (34-104) U/L Troponin I 0.75 H* (<0.04) ng/mL B-Natriuretic Peptide ( - 100) pg/mL Total Protein 7.4 (6.4-8.9) g/dL Albumin 4.7 (3.2-5.2) g/dL Globulin 2.7 (2-4) g/dL Albumin/Globulin Ratio 1.7 (1-3) TSH 2.30 (0.34-5.60) mcIU/mL 11/11/16 11/11/16 11/11/16 Range/Units 09:00 09:00 09:00 WBC (3.5-10.8) 10^3/ul RBC (4.0-5.4) 10^6/ul Hgb (14.0-18.0) g/dl Hct (42-52) % MCV (80-94) fL MCH (27-31) pg MCHC (31-36) g/dl RDW (10.5-15) % Plt Count (150-450) 10^3/ul MPV (7.4-10.4) um3 Neut % (Auto) (38-83) % Lymph % (Auto) (25-47) % [place] % (Auto) (1-9) % Eos % (Auto) (0-6) % Baso % (Auto) (0-2) % Absolute Neuts (auto) (1.5-7.7) 10^3/ul Absolute Lymphs (auto) (1.0-4.8) 10^3/ul Absolute Monos (auto) (0-0.8) 10^3/ul Absolute Eos (auto) (0-0.6) 10^3/ul Absolute Basos (auto) (0-0.2) 10^3/ul Absolute Nucleated RBC 10^3/ul Nucleated RBC % INR (Anticoag Therapy) 0.96 (0.89-1.11) APTT 28.2 (26.0-36.3) seconds D-Dimer, Quantitative < 200 (Less Than 230) ng/mL Sodium (133-145) mmol/L Potassium (3.5-5.0) mmol/L Chloride (101-111) mmol/L Carbon Dioxide (22-32) mmol/L Anion Gap (2-11) mmol/L BUN (6-24) mg/dL Creatinine (0.67-1.17) mg/dL Est GFR ( Amer) (>60) Est GFR (Non-Af Amer) (>60) BUN/Creatinine Ratio (8-20) Glucose (70-100) mg/dL Hemoglobin A1c 5.2 (Less than 6.0) % Lactic Acid (0.5-2.0) mmol/L Calcium (8.6-10.3) mg/dL Magnesium (1.9-2.7) mg/dL Total Bilirubin (0.2-1.0) mg/dL AST (13-39) U/L ALT (7-52) U/L Alkaline Phosphatase (34-104) U/L Troponin I (<0.04) ng/mL B-Natriuretic Peptide 212 H ( - 100) pg/mL Total Protein (6.4-8.9) g/dL Albumin (3.2-5.2) g/dL Globulin (2-4) g/dL Albumin/Globulin Ratio (1-3) TSH (0.34-5.60) mcIU/mL Assess/Plan/Problems-Billing Assessment: 31 yo M h/o VSD s/p repair, HOCM, ICD, mechanical AVR off coumadin p/w chest pain - Patient Problems (1) S/P AVR Comment: heparin to coumadin goal inr 2.5-3.5 (2) Chest pain Comment: plan for stress Monday (3) Tobacco abuse Comment: willing to try chantix start 0.5 mg day 1-3 inpatient (day 2) (4) DVT prophylaxis Comment: heparin to coumadin
[2016-11-14] MEDS: Heparin DRIP 25,000 UNITS(*) 25,000 UNITS/500 ML BAG IVPB SCH (02:36)
[2016-11-14 05:53] LABS: Hematocrit 42 % (42-52); Hemoglobin 14.3 g/dl (14.0-18.0); Mean Platelet Volume 8 um3 (7.4-10.4)
[2016-11-14] MEDS ORDERED: Aminophylline IV* 25 MG/ML 10 ML VIAL ONE (09:56)
[2016-11-14] MEDS ORDERED: Regadenoson* 0.4 MG/5 ML SYRINGE ONE (09:56)
[2016-11-14 11:56] VITALS: BP 116/71
--- NOTE | 2016-11-14 12:23 | RAD ---
Edited for charges. INDICATION: Chest pain, family history of heart disease, abnormal EKG. COMPARISON: No relevant prior exams available on the [facility] for comparison. TECHNIQUE: 10.400 mCi of Tc-99m Myoview were administered IV. SPECT images of the heart were obtained. Later on the same day. Under the direction of Dr. Henderson, the patient was given an IV injection of a pharmacologic stress agent. Subsequently, the patient was given an IV injection of 24.800 mCi Tc-99m Myoview. SPECT images of the heart were obtained and a gated wall motion study was performed. FINDINGS: Gated wall motion images were obtained at stress and demonstrate global hypokinesia with relative sparing of the anterior and lateral beach. The calculated left ventricular ejection fraction is 45 % at stress. Estimated LEFT ventricular end diastolic volume is 136 mL. TID 1.21. There is a large predominant fixed perfusion defect involving the cardiac apex through mid segment most marked at the at the junction of the septum and anterior wall. The defect is mildly larger at stress than rest consistent with a small penumbra of ischemia. No additional fixed or reversible LEFT ventricular myocardial perfusion defects evident. IMPRESSION: 1. Large infarct with penumbra of martha-infarct ischemia. 2. Moderate LEFT ventricular dysfunction at stress with estimated ejection fraction of 45%. 3. Dilated cardiomyopathy. 4. Elevated TID suggesting distal small vessel disease. ASSESSMENT: HIGH RISK. Based on imaging criteria from ACC/AHA 2002 Guideline Update for the Management of Patients With Chronic Stable Angina Table 23. Noninvasive Risk Stratification. MTDD
[2016-11-14] MEDS ORDERED: Enoxaparin(*) 60 MG/0.6 ML SYR SUBCUT SCH (15:00)
[2016-11-14] MEDS: Metoprolol Succinate XL TAB* 50 MG PO SCH (15:44)
[2016-11-14] MEDS: Aspirin Low Dose CHEW TAB* 81 MG PO SCH (15:44)
[2016-11-14] MEDS ORDERED: Warfarin TAB(*) 7.5 MG PO ONE (17:00)
--- NOTE | 2016-11-15 11:07 | DS ---
CC: Dr. Lugo * DISCHARGE SUMMARY: DATE OF ADMISSION: 11/11/16 DATE OF DISCHARGE: 11/14/16 PRIMARY CARE PROVIDER: Dr. Lugo. PRIMARY DIAGNOSES: 1. Chest pain. 2. Mechanical aortic valve replacement. SECONDARY DIAGNOSES: Include: 1. History of ventricular septal defect. 2. History of ventricular tachycardia with implantable cardioverter defibrillator in place, obstructing. 3. Obstructive hypertrophic cardiomyopathy, history of patent ductus arteriosus. 4. History of coronary artery disease with myocardial infarction in 2005. MEDICATIONS ON DISCHARGE: 1. Coumadin 5 mg daily. 2. Chantix starter pack, patient was started in hospital. 3. Metoprolol succinate 50 mg daily. 4. Enoxaparin 90 mg daily. 5. Aspirin 81 mg daily. 6. Acetaminophen 650 mg every 4 hours as needed for pain. PERTINENT LABORATORY DATA: INR on the day of discharge 1.19, goal INR is 2.5. Troponin I peaked at 0.77. HISTORY OF PRESENT ILLNESS AND HOSPITAL COURSE: This is a 31-year-old man with significant cardiac history for obstructive cardiomyopathy, VSD, PDA, PFO as well as a mechanical aortic valve replacement in 2005 for unicuspid aortic valve maintained on Coumadin as well as noncompliance. The patient has been discharged from the cardiology practice in [place] on several occasions. Unfortunately, not welcome back at this time. He presented to the hospital with chest pain with elevated troponin. There was concern given his history of CAD for cardiac ischemia. He was kept in the hospital and underwent nuclear stress test. This test was originally interpreted as high risk; however, discussed with Dr. Henderson, Cardiology, who reinterpreted the information. Did not agree with radiologist's interpretation that the patient has hypertrophic cardiomyopathy and thought that imaging was misrepresenting. Ultimately thoughts represent low risk as well as not a candidate for cardiac revascularization at this time. The patient is safe for discharge at this time ; however, does need to be bridged to Coumadin. His heparin was discontinued on the day of discharge, was given a Lovenox dose and Lovenox teaching. He is to start Lovenox tomorrow, full dose anticoagulation. No complications during this patient's hospital stay. FOLLOWUP: At followup please: 1. Evaluate INR as ordered for, 3 days status post discharge. Goal INR of 2.5 to 3.5. 2. Please ensure the patient continues taking Coumadin and medications . 3. Please encourage tobacco cessation. The patient started Chantix in the hospital without any side effects. 4. No other specific labs or vitals that need followup. Reasons to return to the hospital included recurrent or worsening symptoms including chest pain, shortness of breath, nausea, vomiting, lightheadedness, loss of consciousness, near loss of consciousness, bleeding from any source, inability to obtain or tolerate medications were discussed with the patient, he acknowledged understanding. TIME SPENT: Greater than 60 minutes was spent on the discharge of this patient , greater than half was spent [id number] with the patient. [id number]/[facility] #: [id number] CHARISSE
== END 2016-11-14 16:01 | disposition home or self-care (01) | DRG 315 ==
LOC: ED 08:39 → MEDTELE 10:00 → OBSVTOIN 11-12 13:58
PROVIDERS: ADMIT Internal Medicine; ATTEND Internal Medicine
DX: I42.1 Obstructive hypertrophic cardiomyopathy (principal); I47.2 Ventricular tachycardia; Q21.1 Atrial septal defect; R07.9 Chest pain, unspecified; R74.8 Abnormal levels of other serum enzymes; F17.210 Nicotine dependence, cigarettes, uncomplicated; I25.10 Atherosclerotic heart disease of native coronary artery without angina pectoris; Z95.810 Presence of automatic (implantable) cardiac defibrillator; Z95.2 Presence of prosthetic heart valve; Z82.49 Family history of ischemic heart disease and other diseases of the circulatory system; Z91.128 Patient's intentional underdosing of medication regimen for other reason
CPT/HCPCS: 36415; 71020; 78452; 80048; 80053; 80061; 83036; 83605; 83735; 83880; 84443; 84484; 84520; 85014; 85018; 85025; 85049; 85379; 85610; 85730; 93005; 93017; 93306; A9270-GY; A9502; G0378; J0280; J1644; J1650; J2785

== ENCOUNTER 2018-04-10 20:03 | Emergency (ER) | payer OTHER ==
--- NOTE | 2018-04-10 20:58 | ED ---
HPI Chest Pain - HPI Summary HPI Summary: This patient is a 32 year old M presenting to [facility] with a chief complaint of right sided chest pain that began at 1630 he describes the area of the pain as in his ribs. The patient rates the pain 2/10 in severity. Symptoms aggravated by bending down, reaching over head, and breathing in. Patient denies n/v/d/, SOB, diaphoresis, and injury. 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 He takes 5mg of Coumadin daily. Hx of CO at age 21. [address] He sees Dr. Eagle at [place]. - History of Current Complaint Chief Complaint: EDGeneral Hx Obtained From: Patient Onset/Duration: Started Hours Ago, Still Present Time of Onset: 16:30 Timing: Constant Initial Severity: Mild Current Severity: Mild Pain Intensity: 2 Pain Scale Used: 0-10 Numeric Chest Pain Location: Right Anterior Chest Pain Radiates: No Aggravating Factor(s): Deep Breaths, Other: - movement Associated Signs and Symptoms: Positive: Negative - n/v/d/, SOB, diaphoresis, injury, - Additional Pertinent History Primary Care Physician: MELVA - Allergy/Home Medications Allergies/Adverse Reactions: Allergies Allergy/AdvReac Type Severity Reaction Status Date / Time No Known Allergies Allergy Verified 04/10/18 20:38 PMH/Surg Hx/FS Hx/Imm Hx Cardiovascular History: Reports: Hx Auto Implanted Cardiovert Defib, Hx Congenital Heart Disease, Hx Pacemaker/ICD, Hx Valvular Heart Disease - mechanical heart valve, Other Cardiovascular Problems/Disorders - PT IS POOR HISTORIAN Respiratory History: Denies: Hx Chronic Obstructive Pulmonary Disease (COPD) Musculoskeletal History: Denies: Hx Arthritis, Hx Osteoporosis Sensory History: Denies: Hx Contacts or Glasses, Hx Hearing Aid Opthamlomology History: Denies: Hx Contacts or Glasses Psychiatric History: Denies: Hx Oppositional Polo Disorder - Surgical History Surgery Procedure, Year, and Place: PACEMAKER, DEFIBRILLATOR, AORTIC VALVE REPLACEMENT Hx Anesthesia Reactions: No Infectious Disease History: No Infectious Disease History: Denies: Traveled Outside the [place] in Last 30 Days - Family History Known Family History: Positive: Other - Grandmother - CABG Negative: Seizure Disorder - Social History Alcohol Use: Occasionally Substance Use Type: Reports: None Substance Use Comment - Amount & Last Used: Last used this AM. Hx Tobacco Use: Yes Smoking Status (MU): Heavy Every Day Tobacco Smoker Type: Cigarettes Amount Used/How Often: 1 PPD Length of Time of Smoking/Using Tobacco: 9 years Have You Smoked in the Last Year: Yes Review of Systems Negative: Skin Diaphoresis Positive: Chest Pain Negative: Shortness Of Breath Negative: Vomiting, Diarrhea, Nausea All Other Systems Reviewed And Are Negative: Yes Physical Exam - Summary Physical Exam Summary: VITAL SIGNS: Reviewed. GENERAL: Patient is a well-developed and nourished male who is lying comfortable in the stretcher. Patient is not in any acute respiratory distress. HEAD AND FACE: No signs of trauma. No ecchymosis, hematomas or skull depressions. No sinus tenderness. EYES: PERRLA, EOMI x 2, No injected conjunctiva, no nystagmus. EARS: Hearing grossly intact. Ear canals and tympanic membranes are within normal limits. MOUTH: Oropharynx within normal limits. NECK: Supple, trachea is midline, no adenopathy, no JVD, no carotid bruit, no c- spine tenderness, neck with full ROM. CHEST: TTP over the right chest wall posteriorly. LUNGS: Clear to auscultation bilaterally. No wheezing or crackles. CVS: Regular rate and rhythm, S1 and S2 present, no murmurs or gallops appreciated. There is a click over the aortic area ABDOMEN: Soft, non-tender. No signs of distention. No rebound no guarding, and no masses palpated. Bowel sounds are normal. EXTREMITIES: FROM in all major joints, no edema, no cyanosis or clubbing. NEURO: Alert and oriented x 3. No acute neurological deficits. Speech is normal and follows commands. SKIN: Dry and warm Triage Information Reviewed: Yes Vital Signs On Initial Exam: Initial Vitals Temp Pulse Resp BP Pulse Ox 98.1 F 65 16 136/76 99 04/10/18 20:30 04/10/18 20:30 04/10/18 20:30 04/10/18 20:30 04/10/18 20:30 Vital Signs Reviewed: Yes Diagnostics - Vital Signs Vital Signs Temp Pulse Resp BP Pulse Ox 04/10/18 20:30 98.1 F 65 16 136/76 99 - Laboratory Result Diagrams: 04/10/18 21:08 04/10/18 21:08 Lab Statement: Any lab studies that have been ordered have been reviewed, and results considered in the medical decision making process. - Radiology CXR Radiology Interpretation Completed By: ED Physician Summary of Radiographic Findings: no acute process. Pending official report. - EKG 2039 Cardiac Rate: NL EKG Rhythm: Sinus Rhythm - at 64 BPM Summary of EKG Findings: there are intraventricular conduction delay and LVH. Chest Pain Course/Dx - Course Assessment/Plan: This patient is a 32 year old M presenting to [facility] with a chief complaint of right sided chest pain that began at 1630 he describes the area of the pain as in his ribs. The patient rates the pain 2/10 in severity. Symptoms aggravated by bending down, reaching over head, and breathing in. Patient denies n/v/d/, SOB, diaphoresis, and injury. 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 He takes 5mg of Coumadin daily. Hx of CO at age 21[address] He sees Dr. Eagle at [place]. An EKG reveals sinus 64, there are intraventricular conduction delay, and LVH. CXR reveals, no acute process. Pending official report. Blood work obtained,. Trop is elevated, however it has been elevated for the last 3-4 years and is in his normal range, and it is right sided CP. Dx chest wall pain. In the ED course the patient was given morphine and reglan. The patients pain improved after these medications. Patient will be discharged with prescription for percocet and follow up from PCP. The patient is agreeable with this plan. - Diagnoses Provider Diagnoses: Chest wall pain Discharge - Sign-Out/Discharge Documenting (check all that apply): Patient Departure - Discharge Plan Condition: Stable Disposition: HOME Prescriptions: oxyCODONE/Acetamin 5/325 MG* [Percocet 5/325 TAB*] 1 tab PO Q6H PRN #14 tab MDD 4 PRN Reason: Pain oxyCODONE/Acetamin 5/325 MG* [Percocet 5/325 TAB*] 1 tab PO Q6H PRN #14 tab MDD 4 PRN Reason: Pain Patient Education Materials: Chest Wall Pain (ED) Referrals: Lucas Lugo MD [Primary Care Provider] - Additional Instructions: Follow up with your primary care physician in 1-3 days. RETURN TO THE EMERGENCY DEPARTMENT FOR CHANGING OR WORSENING SYMPTOMS. - Attestation Statements Document Initiated by Scribe: Yes Documenting Scribe: Virgilio Jones Provider For Whom Scribe is Documenting (Include Credential): Mariam Curiel MD Scribe Attestation: IVirgilio , scribed for Mariam Curiel MD on 04/10/18 at 2229. Status of Scribe Document: Ready
[2018-04-10] MEDS ORDERED: Morphine VIAL* 4 MG/ML VIAL (1 ml vial) IV ONE (21:00)
[2018-04-10] MEDS ORDERED: Metoclopramide IV* 5 MG/ML 2 ML VIAL IV SLOW PU ONE (21:00)
[2018-04-10 21:14] LABS: ABS Basophils 0.1 10^3/ul (0-0.2); ABS Eosinophils 0.1 10^3/ul (0-0.6); ABS Lymphocytes 2.3 10^3/ul (1.0-4.8); ABS Monocytes 1.2 10^3/ul (0-0.8); ABS Neutrophils 8.8 10^3/ul (1.5-7.7); ABS Nucleated RBC 0 10^3/ul; Eosinophil % 0.5 %; Hematocrit 41 % (42-52); Hemoglobin 14.3 g/dl (14.0-18.0); Lymphocyte % 18.3 %; Mean Corpuscular HGB Conc 35 g/dl (31-36); Mean Corpuscular Hemoglobin 31 pg (27-31); Mean Corpuscular Volume 88 fL (80-94); Nucleated Red Blood Cells % 0.1; Platelet Count 209 10^3/ul (150-450); Red Blood Count 4.62 10^6/ul (4.00-5.40); Red Cell Distribution Width 12 % (10.5-15); White Blood Count 12.4 10^3/ul (3.5-10.8)
[2018-04-10 21:23] LABS: INR 3.66 (0.77-1.02)
[2018-04-10 21:37] LABS: EGFR Non-African American 101.8 (>60)
[2018-04-10 22:55] VITALS: BP 128/77
== END 2018-04-10 22:53 | disposition home or self-care (01) ==
LOC: ED 20:03
DX: R07.89 Other chest pain (principal); Z95.810 Presence of automatic (implantable) cardiac defibrillator; Z95.2 Presence of prosthetic heart valve; Z82.49 Family history of ischemic heart disease and other diseases of the circulatory system; F17.210 Nicotine dependence, cigarettes, uncomplicated
CPT/HCPCS: 36415; 71046; 80053; 83735; 84484; 85025; 85379; 85610; 85730; 93005; 96374; 96375; 99282; J2270; J2765

== ENCOUNTER 2023-04-28 12:08 | Observation (INO) ==
[2023-04-28 13:25] LABS: ABS Basophils 0.1 10^3/uL (0.0-0.1); ABS Eosinophils 0.1 10^3/uL (0.0-0.5); ABS Lymphocytes 2.8 10^3/uL (1.0-4.8); ABS Monocytes 0.8 10^3/uL (0.0-1.1); ABS Neutrophils 6.8 10^3/uL (1.5-7.6); Eosinophil % 0.8 %; Hematocrit 42.4 % (38-53); Hemoglobin 14.8 g/dL (13.2-16.3); Lymphocyte % 26.6 %; Mean Corpuscular Volume 88.5 fL (80-97); Platelet Count 231 10^3/uL (150-450); Red Blood Count 4.79 10^6/uL (4.06-5.63); Red Cell Distribution Width 12.9 % (12-17); White Blood Count 10.6 10^3/uL (3.6-10.2)
[2023-04-28 13:34] LABS: Activated Partial Thrombo Time 35.6 seconds (26.0-38.0); INR 1.36 (0.83-1.13)
[2023-04-28 13:43] LABS: Albumin 4.8 g/dL (3.2-5.2); Albumin/Globulin Ratio 1.6 (1-3); C Reactive Protein 4.02 mg/L (<8.01); Calcium 9.5 mg/dL (8.6-10.3); Creatinine, Serum 0.88 mg/dL (0.67-1.17); Potassium 3.9 mmol/L (3.5-5.0); Total Bilirubin 0.5 mg/dL (0.2-1.0); Total Protein 7.8 g/dL (6.4-8.9); eGFR CKD-EPI 112.2 (>60)
[2023-04-28 14:12] LABS: High Sensitivity Troponin 1 Hr 223 pg/mL (<20)
[2023-04-28 14:30] LABS: Urine Appearance Clear; Urine Bilirubin Negative (Negative); Urine Blood 1+ (Negative); Urine Color Straw; Urine Glucose Negative (Negative); Urine Ketones Negative (Negative); Urine Nitrite Negative (Negative); Urine Protein Negative (Negative); Urine Specific Gravity 1.006 (1.002-1.030); Urine Urobilinogen Negative (Negative)
[2023-04-28 14:32] LABS: Urine Bacteria Absent (Absent); Urine Red Blood Cell Trace(0-2/hpf) (Absent); Urine White Blood Cell Absent (Absent)
[2023-04-28] MEDS ORDERED: Vancomycin 1,000 MG in NS 0.9% 250 ml 250 ML IVPB ONE (15:59)
[2023-04-28] MEDS: cefTRIAXone 2 gm/50 mL D5W 2 GM/50 ML BAG IV SCH (16:22)
[2023-04-28] MEDS ORDERED: Vancomycin per Pharmacy 1 EA NOTE FOLLOW UP PRN (17:12)
[2023-04-28] MEDS: Enoxaparin 80 MG/0.8 ML SYR SUBCUT SCH (20:42)
[2023-04-29] MEDS: Vancomycin 1000 MG in NS 0.9% 250 ML IVPB SCH ×2 (01:55→11:35)
[2023-04-29 05:49] VITALS: BP 100/54
[2023-04-29 07:03] LABS: ABS Eosinophils 0.1 10^3/uL (0.0-0.5); ABS Lymphocytes 2.7 10^3/uL (1.0-4.8); ABS Monocytes 0.7 10^3/uL (0.0-1.1); ABS Neutrophils 3.6 10^3/uL (1.5-7.6); ABS Nucleated RBC 0.01 10^3/ul; Eosinophil % 1.4 %; Hematocrit 39.6 % (38-53); Hemoglobin 13.7 g/dL (13.2-16.3); Lymphocyte % 37.7 %; Mean Corpuscular Hemoglobin 30.7 pg (27-33); Mean Corpuscular Hgb Conc 34.5 g/dL (31-36); Mean Platelet Volume 8.2 fL (7.5-11.2); Nucleated Red Blood Cells % 0.2 %/100WBC (0.0-0.8); Platelet Count 202 10^3/uL (150-450); Red Blood Count 4.45 10^6/uL (4.06-5.63); Red Cell Distribution Width 12.5 % (12-17); White Blood Count 7.1 10^3/uL (3.6-10.2)
[2023-04-29 07:21] LABS: Calcium 8.8 mg/dL (8.6-10.3); Creatinine, Serum 0.94 mg/dL (0.67-1.17); Potassium 4.3 mmol/L (3.5-5.0); eGFR CKD-EPI 105.8 (>60)
[2023-04-29] MEDS: cefTRIAXone 2 gm/50 mL D5W 2 GM/50 ML BAG IV SCH (11:33)
[2023-04-29] MEDS: Enoxaparin 80 MG/0.8 ML SYR SUBCUT SCH (11:35)
[2023-04-30] MEDS ORDERED: Vancomycin Trough Check NOTE FOLLOW UP ONE (09:30)
== END 2023-04-29 10:45 | disposition left against medical advice (07) ==
LOC: ED 12:08 → EDHOLD 12:08 → MED 15:46
PROVIDERS: ADMIT Hospitalist; ATTEND Hospitalist

== ENCOUNTER 2023-06-14 19:21 | Inpatient (IN) ==
[2023-06-14 20:06] LABS: Hematocrit 36.1 % (38-53); Mean Corpuscular Hemoglobin 30.1 pg (27-33); Mean Corpuscular Hgb Conc 35.9 g/dL (31-36); Mean Corpuscular Volume 83.8 fL (80-97); Mean Platelet Volume 9.2 fL (7.5-11.2); Platelet Count 173 10^3/uL (150-450); Red Blood Count 4.31 10^6/uL (4.06-5.63); Red Cell Distribution Width 12.3 % (12-17); White Blood Count 14.6 10^3/uL (3.6-10.2)
[2023-06-14] MEDS: NS 0.9% 1000 ml BAG 1,000 ML IV ONE ×2 (20:21→22:52)
[2023-06-14 20:25] LABS: Albumin 3.9 g/dL (3.2-5.2); Albumin/Globulin Ratio 1.1 (1-3); Calcium 8.5 mg/dL (8.6-10.3); Creatinine, Serum 1.04 mg/dL (0.67-1.17); Globulin 3.4 g/dL (2-4); Potassium 3.2 mmol/L (3.5-5.0); Total Protein 7.3 g/dL (6.4-8.9); eGFR CKD-EPI 93.7 (>60)
[2023-06-14 20:27] LABS: INR 8.38 (0.83-1.13)
[2023-06-14 20:42] LABS: ABS Lymphocytes 1.2 10^3/uL (1.0-4.8); ABS Neutrophils 12.3 10^3/uL (1.5-7.6); ABS Nucleated RBC 0.01 10^3/ul; Lymphocyte % 8.2 %; Nucleated Red Blood Cells % 0.1 %/100WBC (0.0-0.8)
[2023-06-14] MEDS: Metoprolol Tartrate 5 mg VIAL 5 ml VIAL (1 mg/ml) IV ONE (21:21)
[2023-06-14] MEDS ORDERED: Vancomycin per Pharmacy 1 EA NOTE FOLLOW UP SCH (22:00)
[2023-06-14] MEDS ORDERED: Zosyn per Pharmacy NOTE FOLLOW UP SCH (22:00)
[2023-06-14] MEDS: Potassium EFFERVES 25 meq TAB PO ONE (22:51)
[2023-06-14] MEDS: Piperacillin/Tazobac 3.375 BAG 3.375 GM/100 ML BAG IV ONE (22:52)
[2023-06-14] MEDS: Iohexol 350 (CONTRAST) 500 ML MDV IV ONE (23:49)
[2023-06-15] MEDS: Vancomycin 1,000 MG in NS 0.9% 250 ml 250 ML IVPB ONE (00:03)
[2023-06-15 01:39] LABS: High Sensitivity Troponin 3 Hr 240 pg/mL (<20)
[2023-06-15 01:45] LABS: Osmolality Serum 259 mOsm/kg (275-295)
[2023-06-15] MEDS ORDERED: ZOSYN 3.375 GM Q8H per EXTENDED INFUSION IV SCH ×2 (02:30)
[2023-06-15] MEDS: Lactated Ringers 1000 ml BAG 1,000 ML IV ONE (03:03)
[2023-06-15] MEDS: cefTRIAXone 1 gm/50 mL D5W 1 GM/50 ML BAG IV SCH (03:03)
[2023-06-15 06:41] LABS: Hematocrit 30.4 % (38-53); Hemoglobin 10.9 g/dL (13.2-16.3); Mean Corpuscular Hemoglobin 30.3 pg (27-33); Mean Corpuscular Hgb Conc 35.9 g/dL (31-36); Mean Corpuscular Volume 84.6 fL (80-97); Mean Platelet Volume 9.4 fL (7.5-11.2); Platelet Count 157 10^3/uL (150-450); Red Blood Count 3.59 10^6/uL (4.06-5.63); Red Cell Distribution Width 12.4 % (12-17)
[2023-06-15 06:59] LABS: INR 9.43 (0.83-1.13)
[2023-06-15 07:02] LABS: Calcium 7.3 mg/dL (8.6-10.3); Creatinine, Serum 0.89 mg/dL (0.67-1.17); Magnesium 1.4 mg/dL (1.9-2.7); Potassium 3.6 mmol/L (3.5-5.0); eGFR CKD-EPI 111.8 (>60)
[2023-06-15 08:10] LABS: High Sensitivity Troponin 1 Hr 221 pg/mL (<20)
[2023-06-15 08:33] LABS: ABS Lymphocytes 1.2 10^3/uL (1.0-4.8); ABS Monocytes 0.8 10^3/uL (0.0-1.1); Lymphocyte % 10.1 %
[2023-06-15 08:39] LABS: C Reactive Protein 327.44 mg/L (<8.01)
[2023-06-15] MEDS: Vancomycin 750 MG in NS 0.9% 250 ML IVPB SCH (09:28)
[2023-06-15] MEDS: Magnesium Sulfate 2 gm BAG 2 GM/50 ML BAG IVPB ONE ×2 (09:28→10:59)
[2023-06-15] MEDS: Phytonadione Oral Solution 5 MG/25 ML UDC PO ONE (09:33)
[2023-06-15] MEDS: Potassium Chlor 20 meq TAB.ER PO ONE (09:38)
[2023-06-15] MEDS ORDERED: Senna TAB 8.6 mg TAB PO PRN (10:11)
[2023-06-15] MEDS: KCL 20 MEQ/100 ML IVPREMIX 20 MEQ/100 ML BAG IV SCH (10:55)
[2023-06-15] MEDS ORDERED: Sulfur Hexaflouride MICROSPHR 25 MG VIAL ONE (10:56)
[2023-06-15] MEDS: Azithromycin 500 mg/250 ml NS 500 MG/250 ML BAG IVPB SCH (10:59)
[2023-06-15 13:42] LABS: Urine Benzodiazepine Screen None Detected (None Detect); Urine Cannabinoids Screen None Detected (None Detect); Urine Opiates Screen Presumptive Positive (None Detect)
[2023-06-15 14:20] LABS: Urine Osmo 683 mOsm/kg (150-1150)
[2023-06-16] MEDS: Albuterol HFA INHALER 8 gm MDI INH PRN (00:27)
[2023-06-16 06:32] LABS: Hematocrit 34.3 % (38-53); Hemoglobin 11.9 g/dL (13.2-16.3); Mean Corpuscular Hemoglobin 29.8 pg (27-33); Mean Corpuscular Hgb Conc 34.8 g/dL (31-36); Mean Corpuscular Volume 85.5 fL (80-97); Mean Platelet Volume 9.3 fL (7.5-11.2); Platelet Count 174 10^3/uL (150-450); Red Blood Count 4.01 10^6/uL (4.06-5.63); Red Cell Distribution Width 12.6 % (12-17); White Blood Count 11.7 10^3/uL (3.6-10.2)
[2023-06-16 06:36] LABS: INR 1.38 (0.83-1.13)
[2023-06-16 06:45] LABS: Calcium 8.1 mg/dL (8.6-10.3); Creatinine, Serum 0.75 mg/dL (0.67-1.17); Potassium 3.7 mmol/L (3.5-5.0); eGFR CKD-EPI 117.7 (>60)
[2023-06-16 07:00] LABS: ABS Lymphocytes 0.8 10^3/uL (1.0-4.8); ABS Monocytes 0.6 10^3/uL (0.0-1.1); ABS Neutrophils 10.3 10^3/uL (1.5-7.6); ABS Nucleated RBC 0.01 10^3/ul; Lymphocyte % 6.7 %; Nucleated Red Blood Cells % 0.1 %/100WBC (0.0-0.8)
[2023-06-16 08:28] LABS: Magnesium 2.1 mg/dL (1.9-2.7)
[2023-06-16] MEDS: Vancomycin Trough Check NOTE FOLLOW UP ONE (08:38)
[2023-06-16] MEDS: Potassium EFFERVES 25 meq TAB PO ONE (08:38)
[2023-06-16 09:33] LABS: PCO2 Arterial 36 mmHg (35-45); PO2 Arterial 60 mmHg (80-100)
[2023-06-16] MEDS ORDERED: Warfarin per PHARMACY **NOTE FOLLOW UP SCH (10:00)
[2023-06-16] MEDS: Furosemide 40 mg/4 ml IV VIAL IV ONE (10:07)
[2023-06-16] MEDS ORDERED: methylPREDNISolone SOD SUCC 40 mg/ml 1 ml VIAL IV SCH (12:00)
[2023-06-16] MEDS: methylPREDNISolone SOD SUCC 40 mg/ml 1 ml VIAL IV ONE (14:47)
[2023-06-17 06:44] LABS: Hematocrit 33.8 % (38-53); Hemoglobin 12.1 g/dL (13.2-16.3); Mean Corpuscular Hemoglobin 30.5 pg (27-33); Mean Corpuscular Hgb Conc 35.8 g/dL (31-36); Mean Corpuscular Volume 85.4 fL (80-97); Mean Platelet Volume 9.2 fL (7.5-11.2); Platelet Count 201 10^3/uL (150-450); Red Blood Count 3.96 10^6/uL (4.06-5.63); Red Cell Distribution Width 12.8 % (12-17); White Blood Count 15.6 10^3/uL (3.6-10.2)
[2023-06-17 06:48] LABS: INR 1.48 (0.83-1.13)
[2023-06-17 06:57] LABS: Calcium 8.7 mg/dL (8.6-10.3); Creatinine, Serum 0.63 mg/dL (0.67-1.17); Magnesium 2.2 mg/dL (1.9-2.7); Potassium 3.6 mmol/L (3.5-5.0); eGFR CKD-EPI 124.1 (>60)
[2023-06-17 08:52] LABS: ABS Lymphocytes 0.8 10^3/uL (1.0-4.8); ABS Monocytes 0.9 10^3/uL (0.0-1.1); ABS Neutrophils 13.9 10^3/uL (1.5-7.6); ABS Nucleated RBC 0.02 10^3/ul; Lymphocyte % 5.4 %; Nucleated Red Blood Cells % 0.1 %/100WBC (0.0-0.8)
[2023-06-17] MEDS: Potassium Chlor 20 meq TAB.ER PO ONE (09:34)
[2023-06-17] MEDS: Albuterol HFA INHALER 8 gm MDI INH SCH (13:38)
[2023-06-18 05:56] LABS: Hemoglobin 11.5 g/dL (13.2-16.3); Mean Corpuscular Hemoglobin 30.1 pg (27-33); Mean Corpuscular Hgb Conc 34.9 g/dL (31-36); Mean Corpuscular Volume 86.3 fL (80-97); Platelet Count 295 10^3/uL (150-450); Red Blood Count 3.83 10^6/uL (4.06-5.63); Red Cell Distribution Width 12.8 % (12-17); White Blood Count 16.9 10^3/uL (3.6-10.2)
[2023-06-18 05:58] LABS: INR 3.16 (0.83-1.13)
[2023-06-18 06:13] LABS: Calcium 8.5 mg/dL (8.6-10.3); Creatinine, Serum 0.69 mg/dL (0.67-1.17); Magnesium 2.1 mg/dL (1.9-2.7); Potassium 3.4 mmol/L (3.5-5.0); eGFR CKD-EPI 120.7 (>60)
[2023-06-18 06:30] LABS: ABS Lymphocytes 1.2 10^3/uL (1.0-4.8); ABS Monocytes 0.9 10^3/uL (0.0-1.1); ABS Neutrophils 14.7 10^3/uL (1.5-7.6); ABS Nucleated RBC 0.02 10^3/ul; Eosinophil % 0.1 %; Nucleated Red Blood Cells % 0.1 %/100WBC (0.0-0.8)
[2023-06-18] MEDS ORDERED: Albuterol HFA INHALER 8 gm MDI INH PRN (07:01)
[2023-06-18] MEDS: Potassium EFFERVES 25 meq TAB PO ONE (08:51)
[2023-06-18] MEDS: Furosemide 40 mg/4 ml IV VIAL IV ONE (14:29)
[2023-06-19 06:55] LABS: Calcium 8.5 mg/dL (8.6-10.3); Creatinine, Serum 0.71 mg/dL (0.67-1.17); Potassium 3.4 mmol/L (3.5-5.0); eGFR CKD-EPI 119.7 (>60)
[2023-06-19 07:04] LABS: ABS Eosinophils 0.1 10^3/uL (0.0-0.5); ABS Lymphocytes 1.6 10^3/uL (1.0-4.8); ABS Monocytes 0.9 10^3/uL (0.0-1.1); ABS Neutrophils 10.9 10^3/uL (1.5-7.6); ABS Nucleated RBC 0.03 10^3/ul; Eosinophil % 0.5 %; Hematocrit 32.4 % (38-53); Hemoglobin 10.8 g/dL (13.2-16.3); Lymphocyte % 11.6 %; Mean Corpuscular Hemoglobin 30.4 pg (27-33); Mean Corpuscular Hgb Conc 33.3 g/dL (31-36); Mean Corpuscular Volume 91.2 fL (80-97); Mean Platelet Volume 9.6 fL (7.5-11.2); Nucleated Red Blood Cells % 0.2 %/100WBC (0.0-0.8); Platelet Count 289 10^3/uL (150-450); Red Blood Count 3.55 10^6/uL (4.06-5.63); Red Cell Distribution Width 13.1 % (12-17); White Blood Count 13.4 10^3/uL (3.6-10.2)
[2023-06-19 07:36] LABS: INR 5.51 (0.83-1.13)
[2023-06-19] MEDS: Warfarin - No Order Today **NOTE FOLLOW UP ONE (09:02)
[2023-06-19] MEDS: Potassium Chlor 20 meq TAB.ER PO ONE ×2 (09:05→13:30)
[2023-06-19] MEDS: Furosemide 40 mg/4 ml IV VIAL IV ONE (13:30)
[2023-06-20 06:25] LABS: Hematocrit 32.9 % (38-53); Hemoglobin 11.2 g/dL (13.2-16.3); Mean Corpuscular Hemoglobin 29.8 pg (27-33); Mean Corpuscular Volume 87.5 fL (80-97); Mean Platelet Volume 8.1 fL (7.5-11.2); Platelet Count 396 10^3/uL (150-450); Red Blood Count 3.76 10^6/uL (4.06-5.63); White Blood Count 13.5 10^3/uL (3.6-10.2)
[2023-06-20 06:46] LABS: Calcium 8.6 mg/dL (8.6-10.3); Creatinine, Serum 0.69 mg/dL (0.67-1.17); Magnesium 2.1 mg/dL (1.9-2.7); Potassium 3.5 mmol/L (3.5-5.0); eGFR CKD-EPI 120.7 (>60)
[2023-06-20 07:19] LABS: INR 5.05 (0.83-1.13)
[2023-06-20] MEDS: Warfarin - No Order Today **NOTE FOLLOW UP ONE ×2 (08:59→16:36)
[2023-06-20] MEDS: Potassium Chlor 20 meq TAB.ER PO ONE ×2 (08:59→09:15)
[2023-06-21 06:46] LABS: Hematocrit 32.9 % (38-53); Hemoglobin 11.3 g/dL (13.2-16.3); Mean Corpuscular Hemoglobin 30.2 pg (27-33); Mean Corpuscular Hgb Conc 34.4 g/dL (31-36); Mean Platelet Volume 7.7 fL (7.5-11.2); Platelet Count 420 10^3/uL (150-450); Red Blood Count 3.74 10^6/uL (4.06-5.63); White Blood Count 11.5 10^3/uL (3.6-10.2)
[2023-06-21 06:49] LABS: INR 3.83 (0.83-1.13)
[2023-06-21 07:06] LABS: Calcium 8.4 mg/dL (8.6-10.3); Creatinine, Serum 0.77 mg/dL (0.67-1.17); Magnesium 2.1 mg/dL (1.9-2.7); Potassium 4.1 mmol/L (3.5-5.0); eGFR CKD-EPI 116.8 (>60)
[2023-06-21 15:30] VITALS: BP 94/64
== END 2023-06-21 17:05 | disposition home or self-care (01) | DRG 720 ==
LOC: ED 19:21 → SUATTDRO 22:51 → EDHOLD 22:51 → MEDTELE 06-15 00:33
PROVIDERS: ADMIT Internal Medicine; ATTEND Internal Medicine